=== PATIENT | female | born 1985 | race Caucasian/White ===

== ENCOUNTER 2019-04-12 10:50 | Inpatient (IN) | payer SELFPAY ==
[~2019-04-12] VITALS: Ht 169 cm; Wt 80.7 kg
[2019-04-12] MEDS ORDERED: PREN-380 PO (12:16)
[2019-04-12] MEDS ORDERED: NALBUPHINE 10 MG/ML AMP IVP PRN (12:20)
[2019-04-12] MEDS ORDERED: PROMETHAZINE 25 MG/ML VIAL IVP PRN (12:20)
[2019-04-12] MEDS ORDERED: METHYLERGONOVINE 0.2 MG/ML AMP IM PRN ×2 (12:20→21:30)
[2019-04-12] MEDS ORDERED: CARBOPROST 250 MCG/ML AMP IM PRN (12:20)
[2019-04-12] MEDS: LACTATED RINGERS 1,000 ML IV SCH ×3 (12:37→19:44)
[2019-04-12] MEDS ORDERED: AMPICILLIN 2,000 MG VIAL ONE (12:43)
[2019-04-12] MEDS ORDERED: AMPICILLIN 2,000 MG in NACL 0.9% MINI-BAG PLUS 100 ML IV SCH (13:00)
[2019-04-12 13:32] LABS: APPEARANCE,URINE CLEAR (CLEAR); BILIRUBIN,URINE NEGATIVE (NEGATIVE); BLOOD, URINE TRACE-I (NEGATIVE); COLOR,URINE YELLOW (YELLOW); LEUKOCYTE ESTERASE ,URINE NEGATIVE (NEGATIVE); NITRITE, URINE NEGATIVE (NEGATIVE); UGLUCOSE NEGATIVE (NEGATIVE)
[2019-04-12 13:33] LABS: BASOPHILS % (AUTO) 0.2 % (0.0-2.0); EOSINOPHILS % (AUTO) 0.2 % (0.0-4.0); HEMATOCRIT 36.7 % (36-48); HEMOGLOBIN 12.1 g/dL (12.0-16.0); LYMPHOCYTES # (AUTO) 2.2 K/uL (2.5-16.5); LYMPHOCYTES % (AUTO) 21.5 % (20.5-51.1); MEAN CORPUSCULAR HEMOGLOBIN 30 pg (27-31); MEAN CORPUSCULAR HGB CONC 33 g/dL (33-37); MEAN CORPUSCULAR VOLUME 91.2 fL (80-94); MONOCYTES # (AUTO) 0.6 K/uL (0.8-1.0); MONOCYTES % (AUTO) 5.5 % (1.7-9.3); NEUTROPHILS # (AUTO) 7.5 K/uL (1.8-7.7); NEUTROPHILS % (AUTO) 72.6 % (42.2-75.2); PLATELET COUNT (AUTO) 256 K/uL (140-450); RED BLOOD CELL COUNT(AUTO) 4.03 MIL/uL (4.20-5.40); RED CELL DISTRIBUTION WIDTH 14.2 % (11.6-13.7); WHITE BLOOD COUNT (AUTO) 10.4 K/uL (4.8-10.8)
[2019-04-12 13:44] LABS: RBC,URINE 0-5 /HPF (0-5); WBC,URINE 0-5 /HPF (0-5)
[2019-04-12] MEDS ORDERED: OXYTOCIN 20 UNITS/LR PREMIX 1,000 ML IV ONE (13:54)
[2019-04-12 13:56] LABS: ANION GAP 12.3 (8-16); CARBON DIOXIDE 24.5 mmol/L (21-32); CREATININE 0.7 mg/dL (0.6-1.3); POTASSIUM 3.8 mmol/L (3.5-5.1)
[2019-04-12] MEDS ORDERED: OXYTOCIN 20 UNITS in LACTATED RINGERS 1,000 ML IV SCH (14:00)
[2019-04-12 14:01] LABS: ALBUMIN 2.2 g/dL (3.4-5.0); TOTAL BILIRUBIN 0.2 mg/dL (0.0-1.0)
[2019-04-12 15:27] VITALS: BP 122/76
[2019-04-12] MEDS: AMPICILLIN 1,000 MG in NACL 0.9% MINI-BAG PLUS 50 ML IV SCH ×2 (16:24→20:18)
[2019-04-12] MEDS ORDERED: AMPICILLIN 1,000 MG VIAL ONE ×2 (16:31→20:13)
[2019-04-12] MEDS ORDERED: PROMETHAZINE 25 MG/ML VIAL ONE (16:58)
[2019-04-12] MEDS ORDERED: NALBUPHINE 10 MG/ML AMP ONE (16:58)
[2019-04-12] MEDS ORDERED: MISOPROSTOL 200 MCG TAB VG SCH (18:00)
[2019-04-12] MEDS ORDERED: BUPIVACAINE 0.125%/NS PREMIX 250 ML ONE (19:27)
[2019-04-12] MEDS ORDERED: DOCUSATE SOD/SENNA 50/8.6 MG 1 TAB PO SCH (21:00)
[2019-04-12] MEDS ORDERED: METHYLERGONOVINE 0.2 MG TAB PO PRN (21:30)
[2019-04-12] MEDS ORDERED: OXYTOCIN 10 UNITS/ML VIAL IM PRN (21:30)
[2019-04-12] MEDS ORDERED: BENZOCAINE/MENTHOL 20%-0.5% 60 GM CAN TP PRN (21:30)
[2019-04-12] MEDS ORDERED: MEASLES, MUMPS, AND RUBELLA 1 VIAL SQVAC PRN (21:30)
[2019-04-13] MEDS: IBUPROFEN 600 MG TAB PO PRN ×2 (05:30→10:36)
[2019-04-13 08:30] LABS: HEMATOCRIT 34.1 % (36-48); HEMOGLOBIN 11.1 g/dL (12.0-16.0)
--- NOTE | 2019-04-13 09:13 | NUR ---
PATIENT HAS BEEN SCREENED AND CATEGORIZED LOW NUTRITION RISK. PATIENT WILL BE SEEN WITHIN 7 DAYS OF ADMISSION. 04/18/[address]
== END 2019-04-13 21:45 | disposition home or self-care (01) | DRG 807 ==
LOC: OBSVTOIN 10:50 → MLD 10:50 → MFCC 23:11
PROVIDERS: ADMIT Obstetrics & Gynecology; ATTEND Obstetrics & Gynecology
PROC: 10E0XZZ Delivery of Products of Conception, External Approach (ICD-10-PCS; principal; 2019-04-12)
PROC: 3E033VJ Introduction of Other Hormone into Peripheral Vein, Percutaneous Approach (ICD-10-PCS; 2019-04-12)
PROC: 00HU33Z Insertion of Infusion Device into Spinal Canal, Percutaneous Approach (ICD-10-PCS; 2019-04-12)
PROC: 3E0R3BZ Introduction of Anesthetic Agent into Spinal Canal, Percutaneous Approach (ICD-10-PCS; 2019-04-12)
DX: O48.0 Post-term pregnancy (principal); Z37.0 Single live birth; O76 Abnormality in fetal heart rate and rhythm complicating labor and delivery; Z3A.41 41 weeks gestation of pregnancy; O99.824 Streptococcus B carrier state complicating childbirth; O69.81X0 Labor and delivery complicated by cord around neck, without compression, not applicable or unspecified
CPT/HCPCS: 36415; 51702; 59409; 80053; 81001; 85018; 85025; 86592; 86886; 86900; 86901; 90715; J0290; J2300; J2550; J2590; J3490; J7120